=== PATIENT | male | born 1940 | race Two or more races ===

== ENCOUNTER 2019-06-23 12:00 | Day surgery (SDC) | payer OTHER ==
[~2019-06-23] VITALS: Ht 190.5 cm; Wt 89.8 kg
[~2019-06-23 12:00] MED LIST: ALLOPURINOL100 MG PO; ASPIR-LOW81 MG PO; COZAAR50 MG PO; FISH OIL 1,0001 EAC2 NG; FLUOXETINE HCL10 MG PO; GLUCOPHAGE1000 MG PO; HYDROCHLOROTHIA25 MG PO; MINIPRESS2 MG PO; NORVASC10 MG PO; POTASSIUM CHLO10 MEQ PO; PRAVASTATIN SOD80 MG PO; VISTARIL25 MG PO
--- NOTE | 2019-06-23 14:44 | NUR ---
06/23/19 1444 Farhana Moody 1425 PATIENT TO PACU REPORT FROM TOM ORTIZ RN. PATIENT APPEARS RESTING WITH EYES CLOSED ON LEFT LATERAL SIDE. WITH VERBAL STIMULI PATIENT REPSONDS. NO REPORTS OF PAIN OR NAUSEA. 1435 PATIENT AWAKE, DR. CARVER TO BEDSIDE. PATIENT REPORTS FEELINGS OF DIZZINESS. PATIENT ASKING QUESTIONS ABOUT TEST RESULTS. PICTURES SHOWN TO PATIENT. 1440 PATIENT NOW RESTING ON BACK IN SEMI CASTRO POSITION. PATIENT CONTINUING TO ASK QUESTIONS. PROVIDED ICE WATER. TITRATED TO 2L NC, 02 SATURATION 93%.
--- NOTE | 2019-06-25 09:13 | OR ---
[facility] [address], [place] [address] Signed DATE OF OPERATION: 06/23/2019 SURGEON: Ana Carver MD PREOPERATIVE DIAGNOSIS: Colon screening. POSTOPERATIVE DIAGNOSES: 1. Extensive diverticulosis. 2. Internal hemorrhoids. 3. Polyp at splenic flexure. PROCEDURE: Total colonoscopy to cecum with hot snare polypectomy x1. ANESTHESIA: Intravenous sedation, fentanyl 150 mcg, Versed 8 mg. INDICATION: This 78-year-old white man is a patient of Hal Rodríguez at the [facility]. He is here for surveillance colonoscopy having had polyp excision in 2016. He currently has no symptoms of bleeding, diarrhea, or constipation. He takes magnesium pill to maintain "regularity". His last colonoscopy was in [place] and was said to be negative, though he lists a history of polyps in 2016. He has no family history of colon cancer. He does have family history of diverticulosis. He understands the risks of bleeding, infection, and perforation related to colonoscopy and wished to proceed. FINDINGS: The prep was excellent. Complete colonoscopy was undertaken to the cecum without question. He had numerous diverticula throughout the entire colon, most dominant in the left and sigmoid areas. There was a sessile polyp, which was excised with hot snare polypectomy technique at the splenic flexure. Another small polyp was seen at 42 cm, which could never be found again to do polypectomy though it was small. There were internal hemorrhoids noted on retroflexed view. DESCRIPTION OF PROCEDURE: The patient was brought to the endoscopy suite and placed in lateral decubitus position, given intravenous sedation to the point of slurred speech and nystagmus. Digital rectal examination was normal. Electronically Signed By: ANA CARVER MD 06/25/19 0913 PATIENT NAME: WATSON LIZAMA OPERATIVE REPORT DATE OF : 42 REPORT #: [id number] PHYSICIAN: ANA CARVER MD PCP: LASHAY RIVERA REPORT IS CONFIDENTIAL AND NOT TO BE RELEASED WITHOUT AUTHORIZATION [facility] [address], [place] [address] Signed An Olympus video colonoscope was passed in the rectum and manipulated into the sigmoid. Numerous diverticula were noted. Passage in this area was not forthcoming. The scope was changed and found to be less than perfect in its function. The new scope used was easily able to pass beyond the sigmoid in the area of diverticula and ultimately passed to the cecum without problem. The ileocecal valve and appendiceal orifice were normal. The scope was withdrawn from the cecum and examination upon withdrawal of scope showed no sign of abnormality until approximately the splenic flexure. There, a somewhat sessile polyp was noted, it was about a centimeter in size. This was excised with hot snare polypectomy technique without problem. Given the numerous diverticula in the left colon, a Thakkar Net was used to grasp the polyp and the scope was withdrawn with polyp in toto. Noted at about 42 cm from the anal verge was an another small sessile polyp. Once the polyp was offloaded, the scope was reintroduced through the arduous area of the sigmoid and left colon well beyond to 100 cm and then withdrawn once again with special care observing the area at 42 cm, but no polyp could be found. Distortion of the colonic appearance due to numerous diverticula is likely the underlying reason. The scope was further withdrawn. Again, no further polyp was seen. Retroflexed view of the rectum showed internal hemorrhoidal changes. The scope was removed. The patient was taken to recovery room in good condition. CONCLUDING DIAGNOSES: 1. Extensive diverticulosis. 2. Internal hemorrhoids. 3. Polyp excised at splenic flexure and missing an action small polyp at 42 cm. PLAN: Recommend repeat colonoscopy in 1-2 years based on the missing and resected polyp at 42 cm, sooner if symptoms should occur of course. MD LANDEN Conteh/ISISL /[id number] cc: Hal Rodríguez MD Electronically Signed By: ANA CARVER MD 06/25/19 0913 PATIENT NAME: WATSON LIZAMA OPERATIVE REPORT DATE OF : 42 REPORT #: [id number] PHYSICIAN: ANA CARVER MD PCP: LASHAY RIVERA REPORT IS CONFIDENTIAL AND NOT TO BE RELEASED WITHOUT AUTHORIZATION [address] [address] Signed Copies: HAL RODRÍGUEZ MD ~ Electronically Signed By: ANA CARVER MD 06/25/19 0913 PATIENT NAME: WATSON LIZAMA OPERATIVE REPORT DATE OF : 42 REPORT #: [id number] PHYSICIAN: ANA CARVER MD PCP: LASHAY RIVERA REPORT IS CONFIDENTIAL AND NOT TO BE RELEASED WITHOUT AUTHORIZATION
== END 2019-06-23 15:35 | disposition home or self-care (01) ==
LOC: OPS 12:00 → DS 13:00 → OPS 13:00
PROVIDERS: Surgery
PROC: 0DBL8ZZ Excision of Transverse Colon, Via Natural or Artificial Opening Endoscopic (ICD-10-PCS; principal; 2019-06-23 13:00)
DX: Z12.11 Encounter for screening for malignant neoplasm of colon (principal); D12.3 Benign neoplasm of transverse colon; K57.30 Diverticulosis of large intestine without perforation or abscess without bleeding; K64.8 Other hemorrhoids; Z86.010 Personal history of colon polyps; I10 Essential (primary) hypertension; M10.9 Gout, unspecified; Z88.0 Allergy status to penicillin; Z98.890 Other specified postprocedural states; Z87.39 Personal history of other diseases of the musculoskeletal system and connective tissue
CPT/HCPCS: 99153; G0500; J2250; J3010; J7121

== ENCOUNTER 2020-08-23 09:07 | Observation (INO) | payer OTHER ==
[~2020-08-23] VITALS: Ht 190.5 cm; Wt 93.0 kg
[~2020-08-23 09:07] MED LIST changes: +COZAAR100 MG PO; -COZAAR50 MG PO; -FISH OIL 1,0001 EAC2 NG; +FISH OIL 1,0001 EAC2 PO
[2020-08-23] MEDS ORDERED: LIPITOR20 MG PO (09:31)
[2020-08-23] MEDS ORDERED: ASPIRIN81 MG PO (10:17)
[2020-08-23] MEDS ORDERED: CILOSTAZOL100 MG PO (10:18)
[2020-08-23] MEDS ORDERED: CARDURA4 MG PO (10:18)
[2020-08-23] MEDS ORDERED: MAGNESIUM400 M1 PO (10:19)
[2020-08-23] MEDS ORDERED: METOPROLOL TART25 MG PO (10:20)
--- NOTE | 2020-08-23 13:01 | NUR ---
THIS RN INTO CHECK ON PATIENT. PATIENT RESTING IN BED, EYES CLOSED. CLEAR LIQUID TRAY ORDERED PER EDGAR BADILLO. CALL LIGHT RESTING NEXT TO PATIENT.
[2020-08-23] MEDS ORDERED: NORVASC10 MG PO (13:58)
[2020-08-23] MEDS ORDERED: [UNRECOGNIZED DRUG - OTHER] PO (14:00)
[2020-08-23] MEDS ORDERED: VITAMIN D325 MCG PO (14:01)
--- NOTE | 2020-08-23 14:12 | NUR ---
THIS RN INTO ROOM, IVF STARTED AND MIRALAX GIVEN TO PATIENT. BOWEL PREP DISCUSSED AND PATIENT UNDERSTANDS THAT HE IS TO HAVE EGD/C-SCOPE IN THE MORNING. NO FURTHER NEEDS AT THIS TIME. CALL LIGHT IN REACH, PATIENT RESTING IN BED.
--- NOTE | 2020-08-23 14:53 | NUR ---
REPORT GIVEN TO SHEILA MONCADA.
--- NOTE | 2020-08-23 15:18 | NUR ---
REPORT RECEIVED FROM ANTWAN CARLSON AND PT. CARE RESUMED. INTRODUCED TO PATIENT. PT. DENIES NEEDS. NURSING STUDENTS ASSISTED PT TO THE BATHROOM AND PLACED HIM ON TELEMETRY #8 AND SCD'S
--- NOTE | 2020-08-23 19:00 | NUR ---
SHIFT REPORT RECEIVED FROM MENDEZ RN SHEILA AT BEDSIDE, pt AWAKE AND RESTING IN BED. LR INFUSING AT 100MLS/HR, SITE WNL. TELE#[address], SINUS RHYTHM, HR WNL. BOARD UPDATED, NO FURTHER NEEDS, CALL LIGHT IN REACH.
--- NOTE | 2020-08-23 20:44 | NUR ---
ASSESSMENT COMPLETE, VSS. SCHEDULED MEDICATION GIVEN, SEE EMAR. IV SITE WNL, FLUSHES EASILY. pT DID REPORT HAVING MINIMAL DIZZINESS EARLIER ONCE AMBULATING TO BATHROOM, SINCE RESOLVED. pt INSTRUCTED TO USE CALL LIGHT BEFORE GETTING OOB TO ENSURE SAFETY, pt VERBALIZED UNDERSTANDING. pt DENIES PAIN AND NAUSEA. BOWEL TONES ACTIVE, DENIES FEELING BLOATED. COMPLETED BOWEL MEDS FOR PLANNED SCOPE EARLIER ON DAYSHI, REPORTS HAVING LIQUID BM'S. WILL CONTINUE TO MONITOR STOOL CARACTERISTICS. NO FURTHER NEEDS VERBALIZED, CALL LIGHT IN REACH. SCD'S ON.
--- NOTE | 2020-08-23 21:30 | NUR ---
CALL LIGHT ANSWERED, pt AMBULATED BACK TO BED. DENIED DIZZINESS. SCD'S BACK IN PLACE. 100MLS URINE OUTPUT AND LOOSE DARK GREEN/BROWN BM. NO FURTHER NEEDS, CALL LIGHT IN REACH.
--- NOTE | 2020-08-24 | NUR ---
IN TO MOVE PTs WATER, PT IS NPO STATUS AT THIS TIME
--- NOTE | 2020-08-24 00:20 | NUR ---
NEW BAG IV FLUIDS HUNG AND INFUSING PER MD ORDERS, SITE WNL. pt UP SBA TO BATHROOM, INSTRUCTED TO USE CALL LIGHT WHEN READY TO RETURN TO BED. pt VERBALIZED UNDERSTANDING, CALL LIGHT IN REACH.
--- NOTE | 2020-08-24 02:38 | NUR ---
2AM VSS, ASSESSMENT ALSO COMPLETE. NO NEW CHANGES OR CONCERNS. pt AWOKE EASILY TO VOICE, DENIES PAIN AND NAUSEA. REMAINS NPO FOR SCHEDULED SCOPE. CALL LIGHT IN REACH, SCD'S IN PLACE.
--- NOTE | 2020-08-24 05:06 | NUR ---
pt HAD AN UNEVENTFUL NIGHT, A/OX4 AND CALLED APPROPRIATELY. VSS, TELE#[address], INCREASED PVC'S NOTED. MESSAGE SENT TO DR GUERRERO. RECEIVING IV FLUIDS, SITE WNL. NPO SINCE MIDNIGHT FOR PLANNED UPPER AND LOWER SCOPE. NO NAUSEA OR PAIN NOTED. VOIDING QS, MULTIPLE BM'S THIS SHIFT.
--- NOTE | 2020-08-24 06:34 | CONS ---
[facility] [address], [place] [address] Signed DATE OF CONSULTATION: 08/23/2020 CHIEF COMPLAINT: Melena. HISTORY OF PRESENT ILLNESS: Watson is a 79-year-old gentleman who over the last four days has been having black tarry stool. He has had no abdominal pain. No upper GI complaints. He came to the emergency room for evaluation. He of course was guaiac-positive and a bit anemic. He was asked to be admitted to the Internal Medicine Service. 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 In the meantime, he has been started on clear liquid and his bowel prep. He is currently in the bathroom and unable to be examined. PAST MEDICAL HISTORY: Hypertension, diabetes, hypercholesterolemia, depression, and gout. PAST SURGICAL HISTORY: Left arm. SOCIAL HISTORY: He does not smoke. He has an occasional drink. He likes marijuana once a while. Dr. Hal Rodríguez is his primary care provider. He prefers the [facility]. Samy is his at [phone]. FAMILY HISTORY: Not reviewed. REVIEW OF SYSTEMS: Not reviewed. ALLERGIES: Penicillin causes hives. MEDICATIONS: 1. Losartan. 2. Allopurinol. 3. Fluoxetine. 4. Fish oil. 5. Lipitor. 6. Aspirin. 7. Cilostazol. 8. Doxazosin. Electronically Signed By: ELMER BELL MD 08/24/20 0634 PATIENT NAME: WATSON LIZAMA CONSULTATION DATE OF : 42 REPORT #: [id number] PHYSICIAN: ELMER BELL MD PCP: HAL RODRÍGUEZ MD REPORT IS CONFIDENTIAL AND NOT TO BE RELEASED WITHOUT AUTHORIZATION [facility] [address], [place] [address] Signed 9. Magnesium oxide. 10. Metoprolol. PHYSICAL EXAMINATION: VITAL SIGNS: Blood pressure 167/79, heart rate 78, respiratory rate 20, temperature is 97.2, 100% on room air. He is 6 feet 3 inches at 93 kg. GENERAL: Watson is currently on the toilet, undergoing a bowel prep and he is not able to be examined. LABORATORY DATA: His white blood cell count is 5.6, hemoglobin was 13.2, it is down to 12.7; platelets 169. BUN 14, creatinine 0.8. Liver function tests negative. COVID negative. Albumin is 4.2. ASSESSMENT AND PLAN: Watson is a 79-year-old gentleman who presents with melena and anemia. He tells me he has had previous endoscopies. I explained to Watson I will be back in the morning, we will talk some more and we will plan on adding him on tomorrow morning for upper and lower endoscopy. In the meantime, he will continue his bowel prep. He has expressed understanding and agrees with the above plan. Elmer Bell MD ALB/MODL /[id number] cc: MD Elmer Magallanes MD Copies: HAL RODRÍGUEZ MD, ANDREW L MD ~ Electronically Signed By: ELMER BELL MD 08/24/20 0634 PATIENT NAME: WATSON LIZAMA CONSULTATION DATE OF : 42 REPORT #: [id number] PHYSICIAN: ELMER BELL MD PCP: HAL RODRÍGUEZ MD REPORT IS CONFIDENTIAL AND NOT TO BE RELEASED WITHOUT AUTHORIZATION
--- NOTE | 2020-08-24 08:01 | NUR ---
WIPEDOWN COMPLETE. GOWN CHANGED. SCD'S APPLIED. LR HUNG ON STRAIGHT TUBING. INFORMED CONSENT ALREADY SIGNED. PT IS AWAKE AND ALERT THIS MORNING. CALL LIGHT IN REACH. DENIES FURTHER NEEDS.
--- NOTE | 2020-08-24 08:15 | NUR ---
pt departed to surgery.
--- NOTE | 2020-08-24 09:00 | NUR ---
Spoke with pt and his , who recently retired from [employer]. Both state they live in [place] in a 1 story home. 1 step. Pt denies issues getting in and out of house. He has a cane and uses rarely. Denies financial issues. Plans on dc to home today. Denies needs.
--- NOTE | 2020-08-24 09:33 | NUR ---
08/24/20 0933 Story,Xiomy 3471 PT. AWAKE AND TALKATIVE WITH STAFF, PASSING GAS
--- NOTE | 2020-08-24 10:15 | NUR ---
PT ARRIVED FROM PACU VIA STRETCHER ACCOMPANIED BY ZORA MONCADA. VSS, BP ELEVATED 171/89. PT STATES HE NORMALLY TAKES BP MEDICATIONS AT HOME THAT HE IS NOT TAKING HERE. REFER TO MED REC. LR INFUSING AT 75 MLS/HR. ASSESSMENT COMPLETE. LUNG SOUNDS CLEAR, DIM IN BASES, SATING 100% ROOM AIR. PT ON TELE 8 IN SINUS RHYTHM HR IN 70'S AT REST. SCD'S ON. PT DENIES DIZZINESS WHILE STANDING. IN ROOM. CALL LIGHT IN REACH.
--- NOTE | 2020-08-24 12:00 | NUR ---
NO ACUTE CHANGES TO HEAD TO TOE ASSESSMENT. LUNG SOUNDS CLEAR. BOWEL TONES ACTIVE IN ALL QUADRANTS. TOLERATING LOW FIBER DIET WELL. TELE SHOWS SINUS RHYTHYM W/ OCCASIONAL PVC'S. PT DENIES PAIN OR NAUSEA. RESTING IN BED. CALL LIGHT IN REACH. IN ROOM.
--- NOTE | 2020-08-24 12:30 | NUR ---
PT TOLERATED LOW-FIBER MEAL WELL. DR GUERRERO IN TO SEE PT. ORDER FOR DC.
[2020-08-24] MEDS ORDERED: PROTONIX40 MG PO (13:01)
--- NOTE | 2020-08-24 13:17 | EKG ---
[facility] [address] [facility] [place] [address] Signed Sinus rhythm with occasional premature ventricular complexes Otherwise normal ECG No previous ECGs available Confirmed by ANTONIA GUERRERO DO ([id number]) on 08/24/2020 1:16:50 PM Electronically Signed By: ANTONIA GUERRERO DO 08/24/20 1317 PATIENT NAME: WATSON LIZAMA Electrocardiogram DATE OF : 42 PHYSICIAN: ANTONIA GUERRERO DO REPORT #: [id number] REPORT IS CONFIDENTIAL AND NOT TO BE RELEASED WITHOUT AUTHORIZATION
--- NOTE | 2020-08-24 14:05 | NUR ---
IV REMOVED. CATH INTACT. VSS. DC INSTRUCTIONS THOROUGHLY REVIEWD. PT VERBALIZED UNDERSTANDING. WHEELED TO CAR AND DEPARTED W/ .
--- NOTE | 2020-08-25 07:58 | OR ---
[facility] [address] [place], [place] [address] Signed DATE OF OPERATION: 08/24/2020 SURGEON: Elmer Bell MD PREOPERATIVE DIAGNOSES: 1. Daily aspirin. 2. Melena. 3. Anemia. 4. Personal history of colonic polyps. 5. Diverticulosis. POSTOPERATIVE DIAGNOSES: 1. Pyloric channel/duodenal ulcer. 2. Gastroduodenitis. 3. Small hiatal hernia. 4. Pandiverticulosis. 5. Moderate internal hemorrhoids. PROCEDURES: 1. EGD with CLOtest and biopsies of both pyloric bulb and antrum. 2. Colonoscopy without biopsy. ESTIMATED BLOOD LOSS: None. INDICATIONS: Watson is a 79-year-old gentleman who requires daily aspirin along with cilostazol. He tells me he has had black stool for three or four days. He finally came to the emergency room for evaluation. He has no upper or lower GI complaints. He was anemic and admitted to the Internal Medicine Service. The BUN is unremarkable. I have been asked to see him as a general surgeon on-call for upper and lower endoscopy. He told me he has had at least 6 colonoscopies starting back in 2000. Five were done at the [facility] and last year in June, Dr. Miles did his colonoscopy. Apparently, he has polyps removed every time. He told me he has diverticulosis. Here in the hospital, I reviewed with him upper endoscopy versus the colonoscopies that he has been through already. He is very aware of the risks including, but not limited to gas bloating, crampy abdominal pain, bleeding, perforation requiring surgery, and missed diagnosis. Also, he is quite familiar with bowel preps. Also given his acute situation, his age and vascular disease and so forth, we asked an anesthesia provider to help us with increased monitoring and sedation with propofol. He had been through his bowel prep Electronically Signed By: ELMER BELL MD 08/25/20 0758 PATIENT NAME: WATSON LIZAMA OPERATIVE REPORT DATE OF : 42 REPORT #: [id number] PHYSICIAN: ELMER BELL MD PCP: HAL VARGAS MD REPORT IS CONFIDENTIAL AND NOT TO BE RELEASED WITHOUT AUTHORIZATION [facility] [address] [place], [place] [address] Signed yesterday and he has been hemodynamically stable. His hemoglobin has trended down a little, but generally stable. He had expressed understanding and wished to proceed. PROCEDURE NOTE: Watson was taken into our endoscopy suite and placed in the supine semi-recumbent position. He was given IV sedation per our nurse electrician sound. A bite block was utilized for the case. The posterior oropharynx was anesthetized with lidocaine spray. The adult gastroscope was introduced and advanced under direct visualization of the camera out into the third portion of the duodenum under direct visualization of the camera without difficulty. The duodenum was unremarkable. He has a moderately large duodenal ulcer in the pyloric channel. It is covered with fibrinous exudate not bleeding currently. He has surrounding inflammatory changes. We went ahead and took a biopsy next to this for pathologic review. In addition, the distal portion of the antrum shows inflammatory changes as well. No ulcers in the stomach. We took a biopsy of the antrum for CLOtest as well as pathologic review. Upon retroflexion of scope, it was difficult to get a good view of the cardia. We withdrew the scope up through the area of the GE junction and it was compliant without stricture. He does have some inflammatory changes around the Z-line. It looks like he prior had just a small hiatal hernia. There was no Malhotra's mucosa, no distal esophagitis. The middle and upper esophagus were unremarkable. After this, the gas was suctioned out and the gastroscope removed. Watson tolerated his upper endoscopy quite well. Watson was then rotated into the left lateral decubitus position. He was maintained on IV sedation with propofol per our nurse electrician sound. A digital rectal exam was performed and he does have some mild induration to his prostate gland with good sphincter tone. The adult colonoscope was then introduced and advanced under direct visualization of camera. It took a while to get through the sigmoid colon since it is a bit long, he has moderately significant diverticula and some angulation in the sigmoid colon. Eventually, we made it around and into the cecum itself. His prep was good. We could easily see the appendiceal orifice and the ileocecal valve. The scope was then slowly withdrawn. We had taken pictures throughout for photodocumentation. He has diverticula throughout the colon. They were moderate in size, moderate in number, and scattered about. We did not see any specific polyps on this occasion, although he thinks maybe there were some additional polyps remaining from last year. We looked very carefully and again, we did not see any polyps on withdrawal of the scope. Once in the rectum, we retroflexed the scope and he does have moderate internal hemorrhoid columns. After this, the gas was suctioned out and colonoscope removed. Watson tolerated procedure quite well. RECOMMENDATIONS: I will see Watson back in my office in 7 to 14 days to review his results. Electronically Signed By: ELMER BELL MD 08/25/20 0758 PATIENT NAME: WATSON LIZAMA OPERATIVE REPORT DATE OF : 42 REPORT #: [id number] PHYSICIAN: ELMER BELL MD PCP: HAL VARGAS MD REPORT IS CONFIDENTIAL AND NOT TO BE RELEASED WITHOUT AUTHORIZATION [address] [place] [address] Signed Elmer Bell MD [facility]/MODL /[id number] cc: MD Elmer Magallanes MD Copies: HAL VARGAS MD, ANDREW L MD ~ Electronically Signed By: ELMER BELL MD 08/25/20 0758 PATIENT NAME: WATSON LIZAMA OPERATIVE REPORT DATE OF : 42 REPORT #: [id number] PHYSICIAN: ELMER BELL MD PCP: HAL VARGAS MD REPORT IS CONFIDENTIAL AND NOT TO BE RELEASED WITHOUT AUTHORIZATION
--- NOTE | 2020-08-30 08:58 | PATH ---
[facility] [address] [facility] [place], [place] [address] Signed SPECIMEN(S): A DUODENUM BULB SPECIMEN(S): B ANTRUM/PYLORUS SPECIMEN SOURCE: A. DUODENUM BULB B. ANTRUM/PYLORUS CLINICAL HISTORY: Preop: GI bleed. Postop: Gastroduodenitis, duodenal ulcer, diverticulosis, internal hemorrhoids. MICROSCOPIC DESCRIPTION: Histologic sections of all submitted blocks are examined by light microscopy. These findings, together with the gross examination, support the pathologic diagnosis. FINAL PATHOLOGIC DIAGNOSIS: A. Duodenum, bulb, biopsy: - Duodenal bulb mucosa with peptic duodenitis and mildly increased intraepithelial lymphocytes. - Negative for Helicobacter organisms (HE). - See comment. B. Stomach, antrum/pylorus, biopsy: - Antral mucosa with chronic, active gastritis. - Positive for Helicobacter organisms (HE and IHC). - Negative for dysplasia or malignancy. - See comment. COMMENT: Regarding specimen A: Sections demonstrate duodenal mucosa with gastric surface cell metaplasia and mildly increased intraepithelial lymphocytes (30 per 100 enterocytes). The villi are broader and shorter and Leonides's gland hyperplasia is present, both which may be attributed to the location in the duodenal bulb. The mildly increased intraepithelial lymphocytes may be due to peptic injury or Helicobacter gastritis, but also mild forms of gluten sensitive enteropathy and NSAID injury. Regarding specimen B: An H. pylori immunohistochemical stain (with appropriately staining controls) is positive for Helicobacter organisms. NALcml:C2NR GROSS DESCRIPTION: PATIENT NAME: WATSON BAPTISTE PATHOLOGY DATE OF : 42 REPORT #: [id number] PHYSICIAN: JODY CASTANON PCP: HAL VARGAS MD REPORT IS CONFIDENTIAL AND NOT TO BE RELEASED WITHOUT AUTHORIZATION [facility] [address] [place], [place] [address] Signed Two specimens are received in two containers, labeled "Watson Baptiste." A. The specimen, labeled " Watson Baptiste, #1," and designated on the requisition "duodenum bulb biopsy," is received in formalin and consists of one vaca soft tissue fragment that measures 0.3 cm in greatest dimension. The specimen is entirely submitted in cassette (A1). B. The specimen, labeled " Watson Baptiste, #2," and designated on the requisition "antrum/pylorus biopsy," is received in formalin and consists of one vaca soft tissue fragment that measures 0.4 cm in greatest dimension. The specimen is entirely submitted in cassette (B1). FB (under the direct supervision of a pathologist) The Gross Description was prepared using a voice recognition system. The report was reviewed for accuracy; however, sound-alike word errors, addition and/or deletions may occur. If there is any question about this report, please contact Client Services. ADDITIONAL NOTES: Immunohistochemical and/or in situ hybridization studies were performed on this case with the appropriate positive controls that react as expected. This test was developed and its performance characteristics determined by [facility]. It has not been cleared or approved by the U.S. Food and Drug Administration. The FDA has determined that such clearance or approval is not necessary. This test is used for clinical purposes. It should not be regarded as investigational or for research. [facility] is certified under the Clinical Laboratory Improvement Amendments of 1988 (CLIA) as qualified to perform high complexity clinical laboratory testing. This assay has not been validated for specimens that have been decalcified. PERFORMING LABORATORY: The technical component was performed by [facility], [address] [place] [id number] (Sisal Operator: Patti Farooq MD; CLIA# [id number]). Professional interpretation was performed by [facility], [address] [place], [place] [address] (CLIA# [id number]). Diagnostician: Ciara Moreland MD Pathologist Electronically Signed 08/30/2020 Copies: PATIENT NAME: WATSON BAPTISTE PATHOLOGY DATE OF : 42 REPORT #: [id number] PHYSICIAN: JODY PATHOLOGY PCP: HAL VARGAS MD REPORT IS CONFIDENTIAL AND NOT TO BE RELEASED WITHOUT AUTHORIZATION [facility] [address] [place], [place] [address] Signed ~ PATIENT NAME: WATSON BAPTISTE PATHOLOGY DATE OF : 42 REPORT #: [id number] PHYSICIAN: JODY CASTANON PCP: HAL VARGAS MD REPORT IS CONFIDENTIAL AND NOT TO BE RELEASED WITHOUT AUTHORIZATION
== END 2020-08-24 14:05 | disposition home or self-care (01) ==
LOC: ED 09:07 → MS 09:09
PROVIDERS: Colon & Rectal Surgery; ADMIT Student in an Organized Health Care Education/Training Program; ATTEND Student in an Organized Health Care Education/Training Program
PROC: 0DJD8ZZ Inspection of Lower Intestinal Tract, Via Natural or Artificial Opening Endoscopic (ICD-10-PCS; 2020-08-24)
PROC: 0DB98ZX Excision of Duodenum, Via Natural or Artificial Opening Endoscopic, Diagnostic (ICD-10-PCS; principal; 2020-08-24 09:45)
PROC: 0DB78ZX Excision of Stomach, Pylorus, Via Natural or Artificial Opening Endoscopic, Diagnostic (ICD-10-PCS; 2020-08-24 09:45)
DX: K26.4 Chronic or unspecified duodenal ulcer with hemorrhage (principal); K29.91 Gastroduodenitis, unspecified, with bleeding; K44.9 Diaphragmatic hernia without obstruction or gangrene; K64.8 Other hemorrhoids; D62 Acute posthemorrhagic anemia; I10 Essential (primary) hypertension; E11.9 Type 2 diabetes mellitus without complications; E78.00 Pure hypercholesterolemia, unspecified; M10.9 Gout, unspecified; K57.30 Diverticulosis of large intestine without perforation or abscess without bleeding; Z88.0 Allergy status to penicillin; Z79.899 Other long term (current) drug therapy; Z79.82 Long term (current) use of aspirin; Z20.822 Contact with and (suspected) exposure to COVID-19; Z86.010 Personal history of colon polyps
CPT/HCPCS: 36415; 80053; 83690; 85025; 86677; 86850; 86900; 86901; 88305; 88342; 93005; 93010; 96374; 96376; 99285-25; C9113; C9803; G0378; J2001; J2704; J7030; J7121; U0003

== ENCOUNTER 2020-08-28 13:46 | Emergency (ER) | payer OTHER ==
[~2020-08-28] VITALS: Ht 190.5 cm; Wt 89.4 kg
[~2020-08-28 13:46] MED LIST changes: +ASPIRIN81 MG PO; +CARDURA4 MG PO; +CILOSTAZOL100 MG PO; +LIPITOR20 MG PO; +MAGNESIUM400 M1 PO; +METOPROLOL TART25 MG PO; +PROTONIX40 MG PO; +VITAMIN D325 MCG PO; +[UNRECOGNIZED DRUG - OTHER] PO
--- OUTSIDE RECORDS SUMMARY | 2020-08-28 13:52 | XMS ---
PreManage Notification: WATSON LIZAMA Security Grounds Caretaker Events No recent Security Events currently on file CRITERIA MET - [facility] - 2 Visits in 30 Days CARE PROVIDERS There are no care providers on record at this time. Sree has no Care Guidelines for this patient. Avin[facility] MO.) [facility] NOTE: Visits indicate total known visits. ED/[facility] VISIT TRACKING (12 MO.) 08/28/2020 13:[address] [facility] [address] [facility] TYPE: Emergency COMPLAINT: - HIGH BLOOD PRESSURE 08/23/2020 09:08 [facility] [place] TYPE: Emergency COMPLAINT: - BLOOD IN STOOL INPATIENT VISIT TRACKING (12 MO.) 08/23/2020 09:09 [facility] [place] TYPE: Observation COMPLAINT: - GI BLEED DIAGNOSES: - Chronic or unspecified duodenal ulcer with hemorrhage - Type 2 diabetes mellitus without complications - Other hemorrhoids - Gout, unspecified - Gastroduodenitis, unspecified, with bleeding - Allergy status to penicillin - Personal history of colonic polyps - Diaphragmatic hernia without obstruction or gangrene - Melena - FCI (current) use of aspirin - Pure hypercholesterolemia, unspecified - Acute posthemorrhagic anemia - Essential (primary) hypertension - Other chcf (current) drug therapy - Diverticulosis of large intestine without perforation or abscess without bleeding [email or web address]
--- NOTE | 2020-08-28 22:13 | EKG ---
[facility] [address] [facility] [place], [place] [address] Signed Sinus rhythm with occasional premature ventricular complexes Otherwise normal ECG When compared with ECG of 23-AUG-2020 09:53, No significant change was found Confirmed by YAS GRIFFITH MD ([id number]) on 08/28/2020 10:13:48 PM Electronically Signed By: YAS GRIFFITH MD 08/28/202212 PATIENT NAME: WATSON LIZAMA Electrocardiogram DATE OF : 42 PHYSICIAN: YAS GRIFFITH MD REPORT #: [id number] REPORT IS CONFIDENTIAL AND NOT TO BE RELEASED WITHOUT AUTHORIZATION
== END 2020-08-28 15:26 | disposition home or self-care (01) ==
LOC: ED 13:46
DX: I10 Essential (primary) hypertension (principal); K92.2 Gastrointestinal hemorrhage, unspecified; Z88.0 Allergy status to penicillin; Z79.899 Other long term (current) drug therapy
CPT/HCPCS: 71045; 80053; 83735; 84484; 85025; 93005; 93010; 99285-25

== ENCOUNTER 2021-03-15 14:16 | Emergency (ER) | payer OTHER ==
[~2021-03-15] VITALS: Ht 190.5 cm; Wt 89.8 kg
[~2021-03-15 14:16] MED LIST changes: +DOXEPIN HC10 MG/1 ML PO; +FLOMAX0.4 MG PO
== END 2021-03-15 15:10 | disposition home or self-care (01) ==
LOC: ED 14:16
DX: R33.9 Retention of urine, unspecified (principal); I10 Essential (primary) hypertension; Z88.0 Allergy status to penicillin; Z88.8 Allergy status to other drugs, medicaments and biological substances; Z79.899 Other long term (current) drug therapy
CPT/HCPCS: 51702; 99283-25

== ENCOUNTER 2024-07-17 19:23 | Emergency (ER) | payer OTHER ==
[~2024-07-17] VITALS: Ht 190.5 cm; Wt 95.0 kg
[2024-07-17] MEDS ORDERED: CLOPIDOGREL75 MG PO (19:39)
[2024-07-17 20:13] LABS: BASOPHILS 0.6 % (0-2); EOSINOPHILS 1.2 % (0-6); HEMATOCRIT 43.6 % (35.0-50.0); HEMOGLOBIN 15.7 g/dL (12.0-18.0); LYMPHOCYTES 28.8 % (24-44); MCH 31.5 (27-36); MCV 87.4 fl (81-99); MONOCYTES 8.8 % (0-12); NEUTROPHILS 60.6 % (39-80); PLATELET COUNT 154 K/uL (140-440); RBC 4.99 M/ul (4.3-5.7); RDW 14.6 (10.5-15.0)
[2024-07-17 20:17] LABS: PARTIAL THROMBOPLASTIN TIME 30.9 Sec (22.9-41.3)
[2024-07-17 20:18] LABS: INR 0.99 (0.80-1.30)
[2024-07-17 20:24] LABS: ALBUMIN 4.1 g/dL (3.4-5.0); ALBUMIN/GLOBULIN RATIO 1.52 (1.1-2.4); ANION GAP 10.9 (7-21); BILIRUBIN, TOTAL 1.2 mg/dL (0.2-1.0); BUN/CREATININE RATIO 13.48 (6.0-28.6); CALCIUM 9.3 mg/dL (8.5-10.1); CREATININE, SERUM 0.89 mg/dL (0.70-1.30); POTASSIUM 3.9 mmol/L (3.5-5.1); PROTEIN, TOTAL 6.8 g/dL (6.4-8.2)
[2024-07-17 21:18] LABS: BILIRUBIN, URINE NEGATIVE (negative); BLOOD/HGB, URINE NEGATIVE (Negative); KETONE, URINE NEGATIVE (Negative); LEUK ESTERASE, URINE NEGATIVE (negative); NITRITE, URINE NEGATIVE (negative); PH, URINE 6.5 (5-7)
[2024-07-17] MEDS ORDERED: levETIRAcetam 500 MG/5 ML VIAL IV ONE (22:45)
[2024-07-17] MEDS ORDERED: niCARdipine HCL 50 MG in DEXTROSE 5% 250 ML IV SCH (22:45)
[2024-07-17 23:30] VITALS: BP 132/85
--- NOTE | 2024-07-18 21:11 | EKG ---
[facility] [address] [facility] [place] [address] Signed Sinus rhythm with 1st degree AV block Low voltage QRS Borderline ECG When compared with ECG of 15-MAR-2021 08:44, premature ventricular complexes are no longer present Confirmed by Germán Escalera MD () on 07/18/2024 9:11:32 PM Electronically Signed By: GERMÁN ESCALERA MD 07/18/242110 PATIENT NAME: WATSON LIZAMA Electrocardiogram DATE OF : 42 PHYSICIAN: GERMÁN ESCALERA MD REPORT #: [id number] REPORT IS CONFIDENTIAL AND NOT TO BE RELEASED WITHOUT AUTHORIZATION
== END 2024-07-17 23:30 | disposition short-term general hospital (02) ==
LOC: ED 19:23
PROVIDERS: Internal Medicine
DX: G45.9 Transient cerebral ischemic attack, unspecified (principal); I60.9 Nontraumatic subarachnoid hemorrhage, unspecified; C71.9 Malignant neoplasm of brain, unspecified; I10 Essential (primary) hypertension; E78.00 Pure hypercholesterolemia, unspecified; Z79.899 Other long term (current) drug therapy; Z88.0 Allergy status to penicillin; Z88.8 Allergy status to other drugs, medicaments and biological substances
CPT/HCPCS: 36415; 70450; 70496; 70498; 71045; 80053; 81003; 84484; 85025; 85610; 85730; 93005; 93010; 99285-25; J1953; J7060; Q9967